=== PATIENT | male | born 1995 | race Caucasian/White ===

== ENCOUNTER 2018-02-13 08:48 | Inpatient (IN) | payer OTHER ==
[~2018-02-13] VITALS: Ht 177.8 cm; Wt 80.7 kg
--- NOTE | 2018-02-13 18:00 | NUR ---
PRE-ADMISSION RECEIVED PT AT INTAKE, PT IS A 23Y/O M ADMITTED FOR MEDICALLY SUPERVISED ETOH-BEER, OPIATE- HEROIN, METH WITHDRAWAL. PT IS A/OX4, HAS GOOD EYE CONTACT, HAS A STUTTERING SPEECH, HAS AN ANXIOUS AFFECT. PT REPORTS HAVING CAT DANDER ALLERGY. PMH OF ANXIETY, DEPRESSION, TOURETTES SYNDROME, OCD, INSOMNIA. DENIES HX OF SZ. REPORTS HAVING A HX OF SI WITH SUICIDAL ATTEMPT X2, PT STATES HE TRIED TO STRANGLE HIMSELF WITH OUT SUCCESS, ALSO TRIED TO HANG HIMSELF WITHOUT SUCCESS. PT WAS 16 YEARS OLD AT THE TIME, HIS PARENTS HAD ADMITTED HIM INTO AN INPATIENT PSYCH UNIT. PT STATES HE DOES NOT HAVE A PCP OR PSYCH DOCTOR AT THIS TIME. SUBSTANCE USE HX: 1. ETOH 10-12 BEER CANS DAILY FOR 1 WEEK. LAST USE TODAY 02/13/18 0500. FIRST DRANK AT AGE 14. 2. HEROIN IV/SMOKE 0.5 G FOR 1 WEEK. LAST USE TODAY 02/13/18 0830. FIRST USE AT AGE 17. 3. METH SMOKE 0.25 G FOR 1 WEEK. LAST USE TODAY 02/13/18 0500. FIRST USE AT AGE 18. Addendum: 02/13/18 at 1953 by BRISSA TAFOYA RN INITIAL VS ARE BP:120/78, HR: 82, RR: 18, O2SAT: 98%
[2018-02-13] MEDS ORDERED: IBUPROFEN 600 MG TABLET PO PRN (18:15)
[2018-02-13] MEDS ORDERED: diphenhydrAMINE 50 MG CAPSULE PO PRN (18:15)
[2018-02-13] MEDS ORDERED: MAG HYDROX/AL HYDROX/SIMETH 30 ML LIQUID UDC PO PRN (18:15)
[2018-02-13] MEDS ORDERED: MIRALAX 17 GM POWD.PACK PO PRN (18:15)
[2018-02-13] MEDS ORDERED: CLONIDINE HCL 0.1 MG TABLET PO PRN (18:15)
[2018-02-13] MEDS ORDERED: 5 DAY TAPER OF LORAZEPAM -SERENITY PROTOCOL PO PRN (18:15)
[2018-02-13] MEDS ORDERED: LORAZEPAM 1 MG TABLET PO PRN ×2 (18:15)
[2018-02-13] MEDS ORDERED: LORAZEPAM 2 MG/1 ML VIAL IM PRN (18:15)
[2018-02-13] MEDS ORDERED: LOPERAMIDE HCL 2 MG CAPSULE PO PRN ×2 (18:15)
[2018-02-13] MEDS ORDERED: ACETAMINOPHEN 325 MG TABLET PO PRN (18:15)
[2018-02-13] MEDS ORDERED: ONDANSETRON 4 MG/2 ML VIAL IM PRN (18:15)
[2018-02-13] MEDS ORDERED: MAGNESIUM HYDROXIDE 30 ML LIQUID UDC PO PRN (18:15)
[2018-02-13] MEDS ORDERED: ONDANSETRON ODT 4 MG TAB.RAPDIS SL PRN (18:15)
[2018-02-13] MEDS ORDERED: THIAMINE HCL 200 MG/2 ML VIAL IM ONE (18:15)
[2018-02-13] MEDS ORDERED: DICYCLOMINE HCL 20 MG TABLET PO PRN (18:15)
[2018-02-13 18:34] LABS: BASOPHILS % (AUTO) 0.5 % (0.0-2.0); EOSINOPHILS # (AUTO) 0.2 K/uL (0.0-0.7); EOSINOPHILS % (AUTO) 2.2 % (0.0-7.0); HEMATOCRIT 47.8 % (36.7-47.1); LYMPHOCYTES # (AUTO) 1.8 K/uL (20.0-40.0); LYMPHOCYTES % (AUTO) 20.4 % (20.5-51.5); MEAN CORPUSCULAR HEMOGLOBIN 29.5 uug (23.8-33.4); MEAN CORPUSCULAR HGB CONC 34 g/dL (32.5-36.3); MEAN CORPUSCULAR VOLUME 88.1 fL (73.0-96.2); MONOCYTES # (AUTO) 0.6 K/uL (2.0-10.0); NEUTROPHILS # (AUTO) 6.2 K/uL (1.8-8.9); NEUTROPHILS % (AUTO) 69.9 % (38.5-71.5); PLATELET COUNT (AUTO) 252 K/uL (152-348); RED BLOOD CELL COUNT(AUTO) 5.43 MIL/uL (4.06-5.63); WHITE BLOOD COUNT (AUTO) 8.8 K/uL (3.6-10.2)
[2018-02-13 18:52] LABS: ALANINE AMINOTRANSFERASE 44 U/L (16-63); ALKALINE PHOSPHATASE 71 U/L (50-136); AMYLASE 28 U/L (25-115); ASPARTATE AMINOTRANSFERASE 30 U/L (15-37); BILIRUBIN,TOTAL 0.9 mg/dL (0.2-1.0); CARBON DIOXIDE 32 mmol/L (21-32); CHLORIDE 99 mmol/L (98-107); GLUCOSE 84 mg/dL (74-106); LIPASE 82 U/L (73-393); MAGNESIUM 2.2 mg/dL (1.8-2.4); UREA NITROGEN, BLOOD 10 mg/dL (7-18)
[2018-02-13 19:32] LABS: ETHANOL < 3 MG/DL (0-0)
[2018-02-13] MEDS ORDERED: IBUP-1955 PO (19:42)
[2018-02-13 20:00] VITALS: BP 120/63
[2018-02-13] MEDS ORDERED: TRAZ-214 PO (20:06)
[2018-02-13] MEDS ORDERED: SERT100T12 PO (20:06)
[2018-02-13] MEDS ORDERED: BUPR300T54 PO (20:06)
[2018-02-13] MEDS ORDERED: HYDR-3895 PO (20:06)
[2018-02-13] MEDS ORDERED: QUET25TA PO (20:06)
--- NOTE | 2018-02-13 20:08 | NUR ---
ADMISSION NOTE PT IS A 23Y/O M ADMITTED ON 02/13/181830 FOR MEDICALLY SUPERVISED ETOH-BEER, OPIATE- HEROIN, METH WITHDRAWAL. INITIAL VS ARE BP:120/78, HR: 82, RR: 18, O2SAT: 98%. REPORTS 0 PAIN. PT IS A/OX4, HAS GOOD EYE CONTACT, HAS A STUTTERING SPEECH, HAS AN ANXIOUS AFFECT. PT REPORTS HAVING CAT DANDER ALLERGY. PMH OF ANXIETY, DEPRESSION, TOURETTES SYNDROME, OCD, INSOMNIA. DENIES HX OF SZ. REPORTS HAVING A HX OF SI WITH SUICIDAL ATTEMPT X2, PT STATES HE TRIED TO STRANGLE HIMSELF WITH OUT SUCCESS, ALSO TRIED TO HANG HIMSELF WITHOUT SUCCESS. PT WAS 16 YEARS OLD AT THE TIME, HIS PARENTS HAD ADMITTED HIM INTO AN INPATIENT PSYCH UNIT. PT STATES HE DOES NOT HAVE A PCP OR PSYCH DOCTOR AT THIS TIME. PT STATES HE SMOKE 10 CIGGS DAILY. PT HAS BILATERAL CLEAR LUNG SOUNDS, ABD IS SOFT AND TENDER, BOWEL SOUNDS ACTIVE X4 QUADS. REPORTS HAVING THE "BEGINNING S/S OF WITHDRAWAL" WHICH INCLUDES SOME SHAKINESS, COLD SWEATS, GOOSEBUMPS, PUPIL LARGER THAN NORMAL, ANXIETY, CHILLS, NAUSEA, RESTLESSNESS; HOWEVER STATES, "IS NOT THAT BAD RIGHT NOW." INITIAL COWS 8 CIWA 8. PT REPORTS HAVING BAD ANXIETY WHEN GOING THROUGH WITHDRAWALS. SUBSTANCE USE HX: 1. ETOH 10-12 BEER CANS DAILY FOR 1 WEEK. LAST USE TODAY 02/13/18 0500. FIRST DRANK AT AGE 14. 2. HEROIN IV/SMOKE 0.5 G FOR 1 WEEK. LAST USE TODAY 02/13/18 0830. FIRST USE AT AGE 17. 3. METH SMOKE 0.25 G FOR 1 WEEK. LAST USE TODAY 02/13/18 0500. FIRST USE AT AGE 18. PT REPORTS THAT HE WAS AT [facility] FOR 1 WEEK BEFORE LEAVING AND RELASPING FOR 1 WEEK. PT STATES LONGEST PERIOD OF SOBRIETY IS 100 DAYS RECENTLY BEFORE RELASPE. BEFORE [facility] HE WAS AT [facility] FOR 6 MONTHS. BEFORE REFUSE RECOVERY, HE WAS AT A "[facility] FROM Jun AND THERE FOR 45 DAYS. PT REPORTS THAT HE WHEN HE RELASPED AND HAD USED, HE DID NOT FEEL GOOD HE THOUGHT HE WOULD AND INSTANTLY REGRETED IT. HOWEVER PT STILL KEPT DOING IT FOR 1 WEEK. PT STATES HE WAS STARTING TO SEE THE EFFECTS AND CONSEQUENCES OF HIS DRUG USE WITH HIS RELATIONSHIPS AND SUPPORT SYSTEM AND DECLINE IN HEALTH. HE STATED, "IF I KEEP THIS UP, ALL MY SUPPORT SYSTEM, THEY ARE GOING TO LEAVE ME. I DON'T LIKE WHAT I'VE BECOME. I'VE ALSO LOST 5 LBS IN 1 WEEK." PT STATES NO ONE HAS HELPED HIM TO COME TO TREATMENT BUT HIMSELF AND HE FEELS THAT BECAUSE OF THAT REASON, THIS TIME WILL BE DIFFERENT AND HE WILL CONTINUE TO STAY SOBER BECAUSE NOW HE IS TRULY MOTIVATED. PT STATED, "THERE IS NO FUTURE FOR ME IF I KEEP DOING DRUGS. I LIKED THE WAY I FELT ON THEM AT FIRST BUT NOW I DON'T." PT STATES HIS TRIGGERS FOR RELASPE ARE ANXIETY, STRESS, FRUSTRATION, AND SEEING OTHER DOING IT. PT STATES BARRIERS FOR STAYING SOBER ARE COMPLACENCY AND BOREDOM. SKIN IS INTACT AND BODY CHECK COMPLETED. PT HAS BRUISE AND SWELLING ON LEFT UPPER ARM DUE TO IV USE. EDUCATED PT WITH UNIT RULES, AND S/S TO REPORT. PT VERBALIZED UNDERSTANDING. ENCOURAGED PT TO VERBALIZED FEELINGS ABOUT SITUATION AND ENCOURAGE FLUIDS TOLERATED TO FACILITATE IN DETOX. SIDE RAILS UPX2, BED IN LOW POSITION, CALL LIGHT WITHIN REACH. SAFETY MEASURES IN PLACE. ENDORSEMENT GIVEN TO HOME APPLIANCES MECHANIC NURSE.
--- NOTE | 2018-02-13 20:09 | NUR ---
START OF SHIFT NOTE Endorsed 23 old male admitted to [facility] on 02/13/2018 at 1831 for Alcohol(Beer), Opioid (Heroin), and Methamphetamine withdrawal. Patient reported NKA, Regular Diet, is on Fall and Seizures Precautions. The patient unable UDS provided at this time. Encouraged to increasing oral fluids, as tolerated. PMH: Anxiety, Depression, OCD, Tourette Syndrome, Insomnia, History of SI: Suicide attempts at 16 year old/ Inpatient psyche unit. The patient denies SI/HI now. The patient denies history of withdrawal-induced seizures. Upon endorsement, patient assessed in his room. He is alert and oriented x4, with stable gait and soft clear speech. Patient is anxious, agitated, c/o ""worry about future ". Patient encouraged expresses his feelings. COWS 8,CIWA 8. Patient presented with anxiety, agitation, nervousness, tremors, stomach pain, sweating, chills, fatigue, and restlessness. Respirations is unlabored and even. Abdomen is soft, non-tender. Bowel Sounds active in all four quadrants. Skin is intact, warm, and moist to touch. All safety measures in the place: Call light within reach; bed locked and in the lowest position; padded rails up x 2. Patient endorsed by day shift nurse, report received. Will continue to monitor closely.
[2018-02-13 21:30] LABS: *AMPHETAMINE, URINE POSITIVE (NEGATIVE); *BARBITURATE, URINE NEGATIVE (NEGATIVE); *CANNABINOID, URINE POSITIVE (NEGATIVE); *COCCAINE, URINE NEGATIVE (NEGATIVE); *OPIATE, URINE POSITIVE (NEGATIVE); *PHENCYCLIDINE SCREEN,URINE NEGATIVE (NEGATIVE)
[2018-02-14] VITALS: BP 110/58
--- NOTE | 2018-02-14 04:00 | NUR ---
VS REFUSED, COWS/CIWA DEFERRED VS refused, COWS/CIWA deferred at 0400 due to patient sleeping; to be assessed and scored while patient is awake. Respirations are even and unlabored. RR:16. All needs met. Safety measures in place: Call light within reach, bed locked in low position, padded side rails up x2. Will continue to monitor closely.
--- NOTE | 2018-02-14 06:55 | NUR ---
END OF SHIFT NOTE: Patient is a 23 year old male admitted 02/13/2018 for ETOH (Beer), Opioid (Heroin), and Methamphetamine withdrawal. PRN Medications ordered. Patient is alert and oriented x4 with steady gait. He is cooperative with soft and clear speech. Patient appears sad, worry, with anxious mood, and expresses feelings of nervousness and irritability. Encouraged to expresses his feelings. Emotional support and reassuring provided. Educated to use of Relaxation Techniques: Deep breathing exercises, guided imagery, and visualization. COWS=10, CIWA=12 at 2000, COWS=11, CIWA=12 at 0000. Patient presented with anxiety, agitation, nervousness, nasal congestion, restlessness, tremors, sweating, and fatigue. VS refused, COWS/CIWA deferred at 0400 due to patient sleeping; to be assessed and scored while patient is awake. Respirations are even and unlabored. Skin is intact, warm, and dry to touch. No PRN medications administrated during my shift. MRSA nares collected and sent to lab, as ordered. Calm and safety environment with minimized noises provided. Patient remains compliant with treatment, medications, and diet regime. Patient slept 9 hours, intake 500 ml, voided x2. Encouraged to fluid intake as tolerated. Encourage to attended groups activities. Patient scheduled discharging today. All needs met. Safety measures in the place: Call light within reach, bed locked in the lowest position, padded rails up x2. Patient endorsed to day shift nurse.
[2018-02-14] MEDS ORDERED: 3 DAY TAPER BUPRENORPHINE -SERENITY PROTOCOL SL PRN (07:15)
--- NOTE | 2018-02-14 07:50 | NUR ---
START OF SHIFT PT IS A 23 Y/O M ADMITTED ON 02/13/17 FOR MEDICALLY SUPERVISED ETOH, HEROIN, AND METH WITHDRAWAL. PT IS PLACED ON A 3 DAY ATIVAN AND 3 DAY SUBUTEX TAPER THAT WILL START TODAY. UPON ENTERING ROOM, PT IS COVERED IN THE BLANKET LAYING IN A POSITION. PT IS WITHDRAWN AND HAS A FLAT AFFECT COMPARED TO WHEN BEING ADMITTED LAST NIGHT. PT PRESENTS INTERMITTENT CHILLS, COLD SWEATS, GOOSEBUMPS, GENERALIZED BODY ACHES, DIAPHORESIS, ANXIETY, AGITATION, IRRITABILITY, RESTLESSNESS, PUPIL LARGER THAN NORMAL, CLAMMY SKIN, NASAL CONGESTION, MILD NAUSEA AND TREMORS ARE FELT. EDUCATED PT ON TODAY'S MED REGIMEN AND PLAN OF CARE. ENCOURAGED PT TO ATTEND GROUPS TO PROMOTE COPING SKILLS. SIDE RAILS UPX2, BED IN LOW POSITION. CALL LIGHT WITHIN REACH. SAFETY MEASURES IN PLACE. WILL CONTINUE TO MONITOR.
[2018-02-14 08:00] VITALS: BP 129/76
--- NOTE | 2018-02-14 08:00 | NUR ---
COWS / CIWA ASSESSMENT 0800 COWS 15 AND CIWA 13. PT IS COVERED IN THE BLANKET LAYING IN A POSITION UPON ENTERING ROOM. PT IS WITHDRAWN AND HAS POOR EYE CONTACT AND A FLAT AFFECT COMPARED TO WHEN HE WAS BEING ADMITTED LAST NIGHT. PT PRESENTS INTERMITTENT CHILLS, COLD SWEATS, MOIST SKIN, PILOERECTION OF THE SKIN, GENERALIZED BODY ACHES, DIAPHORESIS, ANXIETY, AGITATION, IRRITABILITY, RESTLESSNESS, PUPILS ARE LARGER THAN NORMAL. PT C/O NASAL CONGESTION, NO APPETITE, HAVING MILD NAUSEA RECENTLY AND TREMORS ARE FELT. Addendum: 02/14/18 at 1036 by BRISSA TAFOYA RN VS ARE BP: 129/76, HR: 99, RR: 18, O2SAT: 99%, T: 98.1
[2018-02-14] MEDS ORDERED: 5 DAY TAPER BUPRENORPHINE -SERENITY PROTOCOL SL PRN (09:00)
[2018-02-14] MEDS ORDERED: TUBERCULIN,PURIF.PROT.DERIV. 5 TU/0.1 ML TEST ID ONE (09:00)
[2018-02-14] MEDS: MULTIVITAMINS,THERAPEUTIC TABLET PO SCH (09:32)
[2018-02-14] MEDS: THIAMINE HCL 100 MG TABLET PO SCH (09:32)
[2018-02-14] MEDS: LORAZEPAM 1 MG TABLET PO SCH ×4 (09:32→21:52)
[2018-02-14] MEDS: FOLIC ACID 1 MG TABLET PO SCH (09:32)
[2018-02-14] MEDS: BUPRENORPHINE HCL 2 MG TAB.SUBL SL SCH ×2 (09:33→21:52)
--- NOTE | 2018-02-14 11:30 | NUR ---
PRN CLONIDINE 0.1 MG AND ROBAXIN 750 MG PO PRN GIVEN. PT WAS CRYING AND STATED, "I CAN'T DO THIS, I NEED TO GO HOME." PT STATED SHE WAS HAVING INTENSE FEELINGS OF CLAUSTROPHOBIA, INTENSE FEELING OF PANIC AND EXTREME ANXIETY, PALPITATIONS, HEART RACING, FATIGUE AND BODY ACHES 03/16. WILL MONITOR AND REASSESS. Addendum: 02/14/18 at 1349 by BRISSA TAFOYA RN WRONG PATIENT
--- NOTE | 2018-02-14 11:47 | NUR ---
COMMUNICATIONS ORDERED ATIVAN 1 MG PO Q2H PRN FOR CIWA 5-15, ADMINISTER FOR DOCUMENTED CIWA 5-15, AND ATIVAN 2 MG PO Q2H PRN FOR CIWA 16 OR MORE, ADMINISTER FOR DOCUMENTED CIWA 16 OR MORE. Addendum: 02/14/18 at 1301 by BRISSA TAFOYA RN WRONG PATIENT
[2018-02-14 12:00] VITALS: BP 100/61
--- NOTE | 2018-02-14 12:00 | NUR ---
COWS / CIWA ASSESSMENT 1200 COWS 15 AND CIWA 13. PT HAS BEEN ISOLATIVE IN ROOM, APPEARS WITHDRAWN. PT IS VERY TREMULOUS, HAS GROSS/FINE TREMORS. PT PRESENTS INTERMITTENT CHILLS, COLD SWEATS, MOIST SKIN, PILOERECTION OF THE SKIN, GENERALIZED BODY ACHES, DIAPHORESIS,CONGESTION, ANXIETY, AGITATION, RESTLESSNESS, NO APPETITE, PUPILS ARE LARGER THAN NORMAL. Addendum: 02/14/18 at 1406 by BRISSA TAFOYA RN CORRECT COWS IS 15, CIWA 13
[2018-02-14 16:00] VITALS: BP 109/64
--- NOTE | 2018-02-14 16:00 | NUR ---
COWS / CIWA ASSESSMENT 1600 COWS 15 AND CIWA 15. PT CONTINUES TO BE ISOLATIVE IN ROOM, PT HAS A FLAT AFFECT, POOR EYE CONTACT, APPEARS VERY ANXIOUS, PT PRESENTS INTERMITTENT CHILLS, DIAPHORESIS, HOT/COLD FLASHES, PILOERECTION OF THE SKIN, GENERALIZED BODY ACHES, IRRITABILITY, AGITATION, RESTLESSNESS, PUPILS ARE LARGER THAN NORMAL NASAL CONGESTION. GROSS TREMORS ARE SEEN.
--- NOTE | 2018-02-14 17:22 | NUR ---
Client was prompted by therapist to attend daily group therapy sessions, and client related that was not feeling well at this time but would attend if he was feeling better.
[2018-02-14] MEDS ORDERED: Medication Not On Formulary EA (Bupropion Hcl (Bupropion Xl) 300 MG) PO SCH (17:30)
[2018-02-14] MEDS: SERTRALINE HCL 100 MG TABLET PO SCH (18:29)
[2018-02-14] MEDS: buPROPion XL 150 MG TAB.SR.24H PO SCH (18:29)
--- NOTE | 2018-02-14 18:43 | NUR ---
END OF SHIFT PT HAS BEEN ISOLATIVE IN ROOM AND WITHDRAWN WITH A DEPRESSIVE MOOD THROUGHOUT SHIFT. LAST COWS 15 AND CIWA 15 @1600. NO PRNS GIVEN DURING SHIFT. PT ATE 0/25/25% OF MEALS. FLUID INTAKE 1000ML, VOIDED X2, BM 0. ENCOURAGED PT TO INCREASE FLUIDS TOLERATED TO FACILITATE IN DETOX AND TO VERBALIZE FEELINGS ABOUT SITUATION. SAFETY MEASURES IN PLACE. WILL GIVE ENDORSEMENT TO RETURN CLERK NURSE.
--- NOTE | 2018-02-14 19:20 | NUR ---
Start of Shift Patient Received. Patient is noted in his room sleeping but easily aroused to verbal stimuli. Breathing even and non labored. Per endorsement, patient continues on a 3 day Ativan and 3 day Subutex taper. Patient is noted to avoid eye contact and isolative to room. No SI noted. No PRN Medications administered. Last noted COWS 15 and CIWA 15. MRSA noted to be negative. All needs attended to promptly. Will continue plan of care as ordered.
[2018-02-14 20:47] VITALS: BP_SYST 105; BP_SYST 114; BP_DIAS 63; BP_DIAS 68
[2018-02-14] MEDS: TRAZODONE 100 MG TABLET PO SCH (21:00)
--- NOTE | 2018-02-14 22:15 | NUR ---
PRN Medication Administration Patient is verbalizing increased feelings of constipation. PRN MOM administered. Will continue to monitor.
[2018-02-15 00:20] VITALS: BP 121/70
[2018-02-15 04:00] VITALS: BP 116/74
--- NOTE | 2018-02-15 07:03 | NUR ---
End of Shift Patient is noted in bed sleeping. Breathing even and non labored. Patient continues on a 3 day Ativan and 3 day Subutex taper. He was noted to verbalize increased feelings of constipation and was given PRN MOM. Patient refused routine order of Trazodone and patient states "I dont think I need it tonight. Im pretty tired." No SI verbalized. Last noted COWS 15 and CIWA 12. patient noted to sleep 7 hours. All needs attended to promptly. Will endorse to continue plan of care as order.
--- NOTE | 2018-02-15 07:30 | NUR ---
START OF SHIFT Pt 23 y/o male admitted for etoh -beer, heroin, methamphetamine withdrawal. Pt received in room on bed with eyes closed resting, but easily arousable to name. Pt alert and oriented to name, place, and time. Perrla. Skin warm and moist to touch. Respirations even and unlabored. Bilateral hand tremors noted. Pt appears disheveled. Clothes scattered throughout the room.Encouraged to maintain hygiene. Pt appears with flat affect. Pt also observed to avoid eye contact during conversation. It was reported that pt received mom prn per MD order last night. It was reported that pt slept for 7 hours last night. Pt is on a 3 day ativan taper and is on day 2. Pt is also on a 3 day subutex taper and is on day 2. Bed on lowest position with side rails x2 up for safety. Call light within reach.
[2018-02-15 08:00] VITALS: BP 121/68
--- NOTE | 2018-02-15 08:00 | NUR ---
CIWA/ COWS ASSESSMENT CIWA=16. CIWS=17. Pt restless not able to lay still in bed. Perspiration noted on forehead of pt. Pt with c/o body aches. Bilateral hand tremors noted. Pt irritable.
[2018-02-15] MEDS: buPROPion XL 150 MG TAB.SR.24H PO SCH (08:24)
[2018-02-15] MEDS: BUPRENORPHINE HCL 2 MG TAB.SUBL SL SCH ×3 (08:24→20:54)
[2018-02-15] MEDS: SERTRALINE HCL 100 MG TABLET PO SCH (08:25)
[2018-02-15] MEDS: LORAZEPAM 1 MG TABLET PO SCH ×3 (08:25→20:54)
[2018-02-15] MEDS: FOLIC ACID 1 MG TABLET PO SCH (08:25)
[2018-02-15] MEDS: MULTIVITAMINS,THERAPEUTIC TABLET PO SCH (08:25)
[2018-02-15] MEDS: THIAMINE HCL 100 MG TABLET PO SCH (08:25)
[2018-02-15 11:09] LABS: HEPATITIS B SURFACE AG Negative (Negative)
[2018-02-15 12:00] VITALS: BP 105/64
--- NOTE | 2018-02-15 12:00 | NUR ---
CIWA/ COWS ASSESSMENT CIWA=15. CIWS=15. Pt restless not able to lay still in bed. Pt skin moist to touch. Pt with complaints of generalized body aches. Bilateral hand tremors noted. Pt irritable and not able to sit/ lay still.
[2018-02-15 16:00] VITALS: BP 130/67
--- NOTE | 2018-02-15 16:00 | NUR ---
CIWA/ COWS ASSESSMENT CIWA=15. CIWS=15. Pt restless not able to lay still in bed. Pt skin moist to touch. Resting bilateral hand tremors noted. Pt irritable and not able to sit/ lay still.
--- NOTE | 2018-02-15 18:15 | NUR ---
PRN MIRALAX Pt states had a small bm but still feels constipated. Miralaax solution mix prn per MD order given and tolerated well.
--- NOTE | 2018-02-15 18:35 | NUR ---
END OF SHIFT Pt 23 y/o male admitted for etoh -beer, heroin, methamphetamine withdrawal. Pt alert and oriented to name, place, and time. Perrla. Skin warm and moist to touch. Respirations even and unlabored. Bilateral hand tremors noted. Pt with flat affect. Pt with low motivation for self care. Pt appears disheveled. Clothes scattered throughout the room. Pt did not attend group activity. Pt was seen by MD today. Pt medication compliant. Pt with periods of irritability this morning. Pt is on a 3 day ativan taper and is on day 2. Pt also on a 3 day subutex and is on day 2. Last ciwa=15 and cows=15 @1600. Bed on lowest position with side rail x 2 up for safety. Call light within reach.
--- NOTE | 2018-02-15 19:15 | NUR ---
Start of Shift Patient Received. Patient is noted in the activities room participating in a group meeting. Per endorsement, patient continues on a 6 day Phenobarbital taper. She was noted episodes of increased anxiety and was given PRN Ativan 1mg, Motrin, Vistaril, Robaxin with medication noted to be intermittently effective. Last noted COWS 10 and CIWA 14. All needs attended to promptly. will endorse to continue plan of care as ordered. Addendum: 02/15/18 at 5142 by SUKHJINDER MARCUS LVN ENTERED IN ERROR
--- NOTE | 2018-02-15 19:15 | NUR ---
Start of Shift Patient Received. Patient is noted in bed sleeping. Breathing even and non labored. Per endorsement, patient continues on a 3 day Ativan and 3 day Subutex taper. He was noted to verbalize increased feelings of constipation with no relief from PRN MOM. He was given PRN miralax. Will continue to monitor for relief. He continues to be isolative to room and non compliant with groups and social activities. Last noted CIWA 16 and COWS 13. All needs attended to promptly. Will continue plan of care as ordered.
[2018-02-15 20:46] VITALS: BP 110/62
[2018-02-15] MEDS: TRAZODONE 100 MG TABLET PO SCH (20:56)
--- NOTE | 2018-02-15 21:05 | NUR ---
PRN Medication Administration Patient is noted to refuse trazodone and states "Sometimes I feel drowsy in the morning and Benadryl is ok to take." PRN Benadryl administered with routine medication. Will continue to monitor.
--- NOTE | 2018-02-15 22:00 | NUR ---
PRN Medication Reassessment Patient is noted in bed sleeping. Breathing even and non labored. PRN Benadryl noted to be effective. No restlessness or discomfort noted. Will continue to monitor.
[2018-02-16 00:29] VITALS: BP 111/58
[2018-02-16 04:27] VITALS: BP 104/57
--- NOTE | 2018-02-16 07:17 | NUR ---
End of Shift Patient is in bed sleeping. Breathing even and non labored. Patient continues on a 3 day Ativan and 3 day Subutex taper. Patient refused routine order of trazodone and requested PRN Benadryl instead with medication noted to be effective. Patient noted to sleep a total of 7 hours. Last noted CIWA 16 and COWS 13. Patient is requesting for Trazodone to be switched from routine to PRN and dosage to be reduced from 100mg to 50mg. All needs attended to promptly. Will continue plan of care as ordered.
--- NOTE | 2018-02-16 07:30 | NUR ---
START OF SHIFT Pt 23 y/o male admitted for etoh -beer, heroin, methamphetamine withdrawal. Pt received in room on bed with eyes closed resting, but easily arousable to name. Pt alert and oriented to name, place, and time. Perrla. Skin warm and moist to touch. Respirations even and unlabored. Bilateral hand tremors noted. Pt appears disheveled. Empty drink bottles and food wrappings scattered throughout the room. Encouraged to maintain hygiene. Pt anxious and restless this morning. It was reported that pt received benadryl prn per MD order last night for insomnia. It was reported that pt slept for 7 hours last night. Pt is on a 3 day ativan taper and is on day 3. Pt is also on a 3 day subutex taper and is on day 3. Bed on lowest position with side rails x2 up for safety. Call light within reach.
[2018-02-16 08:00] VITALS: BP 116/60
--- NOTE | 2018-02-16 08:00 | NUR ---
COWS/ CIWA ASSESSMENT cows=13 ciwa=14. Observed pt with perspiration noted on forehead. Bilateral hand tremors. Pt agitated and anxious this morning.
[2018-02-16] MEDS: THIAMINE HCL 100 MG TABLET PO SCH (08:24)
[2018-02-16] MEDS: buPROPion XL 150 MG TAB.SR.24H PO SCH (08:24)
[2018-02-16] MEDS: FOLIC ACID 1 MG TABLET PO SCH (08:24)
[2018-02-16] MEDS: MULTIVITAMINS,THERAPEUTIC TABLET PO SCH (08:24)
[2018-02-16] MEDS: SERTRALINE HCL 100 MG TABLET PO SCH (08:24)
[2018-02-16] MEDS: LORAZEPAM 1 MG TABLET PO SCH ×2 (08:24→21:31)
[2018-02-16] MEDS ORDERED: BUPRENORPHINE HCL 2 MG TAB.SUBL SL SCH (09:00)
[2018-02-16 12:00] VITALS: BP 107/58
--- NOTE | 2018-02-16 12:00 | NUR ---
COWS/ CIWA ASSESSMENT cows=13 ciwa=14. Skin warm and moist to touch. Bilateral hand tremors. Pt easily irritable and agitated. Pt with c/o body aches.
[2018-02-16 16:00] VITALS: BP 110/60
--- NOTE | 2018-02-16 16:00 | NUR ---
COWS/ CIWA ASSESSMENT cows=13 ciwa=14. Skin warm and moist to touch. Bilateral hand tremors. Pt easily irritable this afternoon. Pt with complaints of generalized body aches.
--- NOTE | 2018-02-16 18:24 | NUR ---
END OF SHIFT Pt 23 y/o male admitted for etoh -beer, heroin, methamphetamine withdrawal. Pt alert and oriented to name, place, and time. Perrla. Skin warm and moist to touch. Respirations even and unlabored. Bilateral hand tremors noted. Pt with flat affect. Pt with low motivation for self care. Pt appears disheveled. Empty drink bottles scattered throughout the room. Pt isolative to room throughout the day. Pt did not attend group activity. Pt was seen by MD today. Pt medication compliant. Pt with periods of irritability this morning. Pt is on a 3 day ativan taper and is on day 3. Pt also on a 3 day subutex and is on day 3. Last ciwa=13 and cows=14 @1600. Bed on lowest position with side rail x 2 up for safety. Call light within reach.
--- NOTE | 2018-02-16 19:10 | NUR ---
Start of Shift Patient is in his room, awake, alert and verbally responsive. Breathing even and non labored. Per endorsement, Patient continues on a 3 day Ativan and 3 day Subutex taper. He continues to be isolative and non compliant with group meetings and social activities. Trazodone order changed from 100mg to 50mg as per patients request. No PRN medications administered. All needs attended to promptly. Will continue plan of care as ordered.
[2018-02-16 20:30] VITALS: BP 118/68
[2018-02-16] MEDS ORDERED: TRAZODONE 100 MG TABLET PO SCH (21:00)
[2018-02-16] MEDS: TRAZODONE 50 MG TABLET PO SCH (21:31)
[2018-02-17 00:35] VITALS: BP 111/53
[2018-02-17 04:15] VITALS: BP 107/56
--- NOTE | 2018-02-17 07:01 | NUR ---
End of Shift Patient is noted in bed sleeping. Breathing even and non labored. Patient continues on a 3 day Ativan and 3 day Subutex taper. He is noted to continue to be isolative to room and non compliant with group meetings and social activities. No PRN medications administered. Last noted COWS 8 and CIWA 10. Patient is noted to sleep a total of 8 hours. All needs attended to promptly. Will continue plan of care as ordered.
--- NOTE | 2018-02-17 07:55 | NUR ---
Start of shift note; Received report from night nurse. Patient is a 23 year old male admitted on 02/13/18 for ETOH /Opiate withdrawal. Patient was placed on a 3 day Ativan and 3 day Subutex taper. Patient is AOX4, withdrawn, isolative per endorsement, anxious , complaining of muscle aches. Encouraged patient to participate in group activity and therapy. Educated patient regarding the importance of compliance to treatment and medication regime. All safety measures secured. Will continue to monitor patient.
[2018-02-17 08:00] VITALS: BP 93/65
--- NOTE | 2018-02-17 08:00 | NUR ---
COWS/CIWA note; Patient's current COWS score is 10 and CIWA of 9 manifested by diaphoresis, muscle aches, stomach cramps, tremors, yawning, anxiety and goosebump. Will continue to monitor patient.
[2018-02-17] MEDS: FOLIC ACID 1 MG TABLET PO SCH (08:57)
[2018-02-17] MEDS: MULTIVITAMINS,THERAPEUTIC TABLET PO SCH (08:57)
[2018-02-17] MEDS: SERTRALINE HCL 100 MG TABLET PO SCH (08:57)
[2018-02-17] MEDS: buPROPion XL 150 MG TAB.SR.24H PO SCH (08:57)
[2018-02-17] MEDS: THIAMINE HCL 100 MG TABLET PO SCH (08:57)
[2018-02-17 12:00] VITALS: BP 107/56
--- NOTE | 2018-02-17 12:00 | NUR ---
COWS/CIWA note; Patient's scores continues to be COWS score of 10 and CIWA of 9 manifested by diaphoresis, muscle aches, stomach cramps, tremors, yawning, anxiety and goosebump. Will continue to monitor patient.
[2018-02-17 16:00] VITALS: BP 118/65
--- NOTE | 2018-02-17 16:39 | NUR ---
COWS/CIWA note; Patient's current COWS score is 7 and CIWA of 8 manifested by muscle aches, stomach cramps, tremors, yawning and anxiety . Will continue to monitor patient.
--- NOTE | 2018-02-17 18:32 | NUR ---
End of shift note; Patient is AOX4, presented with anxiety, flat affect, avoidant to eye contact , withdrawn, isolated , diaphoresis and fatigue. Patient completed his taper medication order. Patient is medically cleared for discharge tomorrow to be transferred to [facility]. Patient remained compliant with treatment plan and medication regime. Encouraged patient to participate in group therapy, patient stated "I'm okay , i don't want to go to therapy i just want to sleep". Educated patient regarding different coping skills that will help him cope with stress. NO PRN medication given. Patient's last COWS score is 7 and last CIWA is 8. All safety measures secured. Met all needs.
--- NOTE | 2018-02-17 19:30 | NUR ---
Start of Shift Pt was admitted [id number] for medically managed withdrawal from ETOH, Heroin and Methamphetamine salts. Pt is a full code, with NKA's and on a regular diet. Pt has completed a 3 day Subutex and 3 day Ativan tapers on 02/16/18. Pt is to be d/c'd to [facility] . Pt found in room, appears diaphoretic, c/o anxiety, agitation, tremors with arms outstretched. Pt has been isolatative in room, hx of Tourettes and pt states he doesnt want to socialize. Coping skills and stress reduction techniques discussed. Safety measures remain in place
[2018-02-17 20:00] VITALS: BP 112/57
--- NOTE | 2018-02-17 20:00 | NUR ---
COWS/CIWA Assessment Pt presents with a COWS score of 6, CIWA of 8. Slight improvement in COWS score from 1600 r/t decrease in sweating, B/A's and GI upset. Restlessness, and hand tremors grades more heavily. HR 70,BP 112/57, Pt denies piloerection, Pupils 3mm, nasal congestion or tearing. CIWA remains unchanged with hand tremors, diaphoresis, anxiety/agitation.
[2018-02-17] MEDS: TRAZODONE 50 MG TABLET PO SCH (21:33)
--- NOTE | 2018-02-18 | NUR ---
VS's COWS/CIWA Deferred VS's, COWS and CIWA deferred r/t pt sleeping/refused. RR 14, even and nonlabored. Will continue to monitor, promptly attending to all s/sx's w/d or distress.
[2018-02-18] MEDS ORDERED: BUPR-96 PO (00:06)
[2018-02-18] MEDS ORDERED: TRAZ-213 PO (00:06)
[2018-02-18] MEDS ORDERED: SERT100T12 PO (00:06)
[2018-02-18 04:00] VITALS: BP 105/46
--- NOTE | 2018-02-18 04:00 | NUR ---
COWS/CIWA Deferred 0400 VS's obtained/stable, COWS and CIWA deferred r/t pt sleeping/refused. Will continue to monitor, promptly attending to all s/sx's w/d or distress.
--- NOTE | 2018-02-18 07:08 | NUR ---
Start of Shift Endorsement given to day nurse. 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 Pt is a full code, with NKA's and on a regular diet. Pt has completed a 3 day Subutex and 3 day Ativan tapers on 02/16/18. Pt is to be d/c'd to [facility] today, 02/18/18. Pt received no PRN's for the shift. Pt slept for 7 hours, with 1605mls intake and 2 voids. Last COWS was 6, CIWA 8 at 2000 hours. Pt anxious over d/c today and tx to [facility]. Coping skills and stress management discussed with pt during evening. Pt encouraged to socialize and participate at new facility. Affect flat/blunted, mood remains depressed and worried. Full safety measures remain in place.
--- NOTE | 2018-02-18 07:40 | NUR ---
Start of shift note; Received report from night nurse. Patient is a 23 year old male admitted on 02/13/18 for ETOH /Opiate withdrawal. Patient was placed on a 3 day Ativan and 3 day Subutex taper, completed taper without any adverse reaction. Patient is AOX4, withdrawn, isolative per endorsement, anxious , complaining of muscle aches. Patient is medically cleared for discharge per MD. All safety measures secured. Will continue to monitor patient.
[2018-02-18 08:00] VITALS: BP 105/68
[2018-02-18] MEDS: MULTIVITAMINS,THERAPEUTIC TABLET PO SCH (08:32)
[2018-02-18] MEDS: FOLIC ACID 1 MG TABLET PO SCH (08:33)
[2018-02-18] MEDS: SERTRALINE HCL 100 MG TABLET PO SCH (08:33)
[2018-02-18] MEDS: THIAMINE HCL 100 MG TABLET PO SCH (08:33)
[2018-02-18] MEDS: buPROPion XL 150 MG TAB.SR.24H PO SCH (08:33)
--- NOTE | 2018-02-18 09:35 | NUR ---
Discharge note; Patient is AOX4, patient is medically cleared for discharge today per MD to be transferred to [facility]. All valuables, belongings, prescriptions, and medications given to patient. Patient denies S/I and H/I. Patient completed treatment without any adverse reactions. Patient left the hospital at exactly 0935 on 02/18/18. Met all needs.
== END 2018-02-18 09:35 | disposition other institution (70) | DRG 895 ==
LOC: SRC 17:21
PROVIDERS: ADMIT Family Medicine Addiction Medicine; ATTEND Family Medicine Addiction Medicine
PROC: HZ2ZZZZ Detoxification Services for Substance Abuse Treatment (ICD-10-PCS; principal; 2018-02-13)
PROC: HZ51ZZZ Individual Psychotherapy for Substance Abuse Treatment, Behavioral (ICD-10-PCS; 2018-02-15)
DX: F11.23 Opioid dependence with withdrawal (principal); F33.2 Major depressive disorder, recurrent severe without psychotic features; Z59.1 Inadequate housing; F95.2 Tourette's disorder; Z91.5 Personal history of self-harm; Z81.8 Family history of other mental and behavioral disorders; Z79.899 Other long term (current) drug therapy; K59.00 Constipation, unspecified; F42.9 Obsessive-compulsive disorder, unspecified; F41.1 Generalized anxiety disorder; F15.23 Other stimulant dependence with withdrawal; Z91.89 Other specified personal risk factors, not elsewhere classified; F17.210 Nicotine dependence, cigarettes, uncomplicated; I95.9 Hypotension, unspecified
CPT/HCPCS: 36415; 80307; 80324; 80349; 80361; 83690; 83735; 85025; 86592; 86705; 86803; 87340; 87806; A4663; G0480; Q0163